=== PATIENT | male | born 1935 | race Caucasian/White ===

== ENCOUNTER → 2016-05-20 | Outpatient (CLI) | payer MEDICARE, BC ==
[~2016-05-20] MED LIST: ALDACTONE25 MG PO; ALLOPURINOL300 MG PO; AMIODARONE HCL100 MG PO; ATIVAN0.5 MG PO; CLOTRIMAZOLE-BE45 GM TRDERM; CORDARONE200 MG PO; COREG3.125 MG PO; DUONEB 3.0-0.5 M3 ML INH; FLOMAX0.4 MG PO; FLONASE16 GM NASBOTH; GAVILAX17 GM PO; HALFPRIN81 MG PO; LASIX20 M1 PO; LASIX40 MG PO; LEVAQUIN750 MG PO; LEXAPRO20 MG PO; LIPITOR80 MG PO; MIDODRINE HCL5 MG PO; MIRALAX17 GM PO; PROTONIX40 MG PO; TYLENOL325 MG PO
== END | disposition short-term general hospital (02) ==
LOC: CLCARD 09:23
DX: I48.92 Unspecified atrial flutter (principal); I10 Essential (primary) hypertension; I05.9 Rheumatic mitral valve disease, unspecified

== ENCOUNTER → 2016-05-25 | Outpatient (CLI) | payer MEDICARE, BC | END | disposition short-term general hospital (02) | LOC: CLORTH 10:26 | DX: S46.011A Strain of muscle(s) and tendon(s) of the rotator cuff of right shoulder, initial encounter (principal) ==

== ENCOUNTER → 2016-07-12 | Outpatient (CLI) | payer MEDICARE, BC | END | disposition short-term general hospital (02) | LOC: CLPULM 05:11 | DX: J44.9 Chronic obstructive pulmonary disease, unspecified (principal); G47.33 Obstructive sleep apnea (adult) (pediatric); G47.61 Periodic limb movement disorder; I10 Essential (primary) hypertension; F41.9 Anxiety disorder, unspecified; K21.9 Gastro-esophageal reflux disease without esophagitis; N40.0 Benign prostatic hyperplasia without lower urinary tract symptoms; I48.91 Unspecified atrial fibrillation; I05.9 Rheumatic mitral valve disease, unspecified; I50.9 Heart failure, unspecified; Z95.810 Presence of automatic (implantable) cardiac defibrillator; Z98.890 Other specified postprocedural states ==

== ENCOUNTER → 2016-08-19 | Outpatient (CLI) | payer MEDICARE, BC | END | disposition short-term general hospital (02) | LOC: CLCARD 08:32 | DX: I11.0 Hypertensive heart disease with heart failure (principal); I50.32 Chronic diastolic (congestive) heart failure; I47.2 Ventricular tachycardia; R42 Dizziness and giddiness; R60.9 Edema, unspecified; Z98.890 Other specified postprocedural states ==